=== PATIENT | male | born 1965 | race Caucasian/White ===

== ENCOUNTER 2023-10-12 12:26 | Emergency (ER) | payer OTHER ==
[~2023-10-12] VITALS: Ht 190.5 cm; Wt 113.4 kg
== END 2023-10-12 14:01 | disposition home or self-care (01) ==
LOC: ER 12:26
DX: S83.92XA Sprain of unspecified site of left knee, initial encounter (principal); X50.9XXA Other and unspecified overexertion or strenuous movements or postures, initial encounter; Y93.01 Activity, walking, marching and hiking
CPT/HCPCS: 73562-LT; 99283-25

== ENCOUNTER 2024-09-22 06:31 | Day surgery (SDC) | payer OTHER ==
[2024-09-22] VITALS (19 sets, daily range): BP systolic 79–133; BP diastolic 57–86
[~2024-09-22] VITALS: Ht 190.5 cm; Wt 104.8 kg
[~2024-09-22 06:31] MED LIST: ATOR80 PO; CATAPRES0.1 MG PO; CELEXA40 M1 PO; DABI150C PO; DULO60 PO; EZET10 PO; FURO40 PO; GABA800 PO; HUMALOG KW100 UNIT/1 SC; HYDPAM25 PO; Lactated Ringer's 1,000 ML IV SCH; MODA200 PO; Nexium40 MG PO; POTA10T PO; TRULICITY3 MG/0.5 M SC; VALS80 PO
[2024-09-22] MEDS ORDERED: Benzocaine Oral Spray 0.5ML UD ONE (07:08)
[2024-09-22] MEDS ORDERED: propofoL 20 ML IV ONE (07:08)
--- NOTE | 2024-09-22 07:12 | NUR ---
Ambulatory in Day Surgery History, Chart, Medications and Allergies reviewed before start of procedure. Pre-Op teaching done. Pt verbalizes understanding. Patient States Post-Procedure ride home has been arranged.
--- NOTE | 2024-09-22 07:54 | NUR ---
09/22/24 0754 Nacho Knight CONFIRMED AND REVIEWED H&P, MEDCICATIONS, ALLERGIES, MEDICAL HISTORY, RESPIRATORY HISTORY, VITAL SIGNS, 3-LEAD EKG, CONSENTS, AND PHYSICIAN ORDERS. PATIENT CONFIRMS NPO STATUS AND AGREES WITH SCHEDULED PROCEDURE. MONITOR INTACT WITH CONTINUOUS PULSE OXIMETRY, CAPNOGRAPHY, 3-LEAD EKG, INTERMITTENT BP. SUPPLEMENTAL O2 TO BE TITRATED THROUGHOUT PROCEDURE TO MAINTAIN O2 SATURATION ABOVE 90%. PATIENT DETERMINED TO BE ASA APPROPRIATE FOR PROPOFOL SEDATION PRIOR TO START OF PROCEDURE BY DR. JAMIL
--- NOTE | 2024-09-22 08:31 | NUR ---
Discharge instructions reviewed with patient. Patient verbalizes understanding. Copy given to patient to take home. Pt states lower BP's are his baseline. Not sympatmatic. Patient States Post-Procedure ride home has been arranged. Discharged via wheelchair to private car for ride home.
== END 2024-09-22 08:33 | disposition home or self-care (01) ==
LOC: ORSCMMR 06:31 → ORD 07:30 → ORSCMMR 08:33
PROVIDERS: Internal Medicine Gastroenterology
PROC: 0DB48ZX Excision of Esophagogastric Junction, Via Natural or Artificial Opening Endoscopic, Diagnostic (ICD-10-PCS; principal; 2024-09-22 07:30)
PROC: 0DJD8ZZ Inspection of Lower Intestinal Tract, Via Natural or Artificial Opening Endoscopic (ICD-10-PCS; principal; 2024-09-22 07:30)
DX: K21.9 Gastro-esophageal reflux disease without esophagitis (principal); Z12.11 Encounter for screening for malignant neoplasm of colon; E11.9 Type 2 diabetes mellitus without complications; K44.9 Diaphragmatic hernia without obstruction or gangrene; E78.00 Pure hypercholesterolemia, unspecified; I10 Essential (primary) hypertension; G47.30 Sleep apnea, unspecified; Z83.719 Family history of colon polyps, unspecified; Z79.899 Other long term (current) drug therapy; Z79.4 Long term (current) use of insulin; Z79.85 Long-term (current) use of injectable non-insulin antidiabetic drugs
CPT/HCPCS: 43239; G0105; 82947; 88305; A9270; J2704; J7120